=== PATIENT | male | born 1995 | race African-American/Black ===

== ENCOUNTER 2021-10-14 11:01 | Emergency (ER) | payer BC ==
[~2021-10-14] VITALS: Ht 167.6 cm; Wt 63.5 kg
[2021-10-14 11:46] LABS: BASOPHILS # (AUTO) 0.1 K/uL (0.0-0.2); EOSINOPHILS % (AUTO) 4.4 % (0.0-6.0); HEMATOCRIT 42 % (39-51); LYMPHOCYTES # (AUTO) 2.2 K/uL (0.8-4.8); LYMPHOCYTES % (AUTO) 29.8 % (20.0-44.0); MEAN CORPUSCULAR HGB CONC 33 g/dl (31.0-36.0); MEAN CORPUSCULAR VOLUME 90 fL (80-96); MONOCYTES # (AUTO) 0.7 K/uL (0.1-1.30); MONOCYTES % (AUTO) 8.8 % (2.0-12.0); NEUTROPHILS # (AUTO) 4.2 K/uL (1.8-8.9); PLATELET COUNT (AUTO) 238 K/uL (150-450); RED BLOOD CELL COUNT(AUTO) 4.65 MIL/uL (4.5-6.0); WHITE BLOOD COUNT (AUTO) 7.5 K/uL (4.3-11.0)
[2021-10-14 11:52] LABS: CALCIUM, SERUM 9.1 mg/dL (8.5-10.1); CARBON DIOXIDE 27 mmol/L (21-32); CHLORIDE 108 mmol/L (98-107); GLUCOSE 117 mg/dL (74-106); POTASSIUM 3.6 mmol/L (3.5-5.1); SODIUM SERUM 144 mmol/L (136-145); UREA NITROGEN, BLOOD 12 mg/dL (7-18)
[2021-10-14 11:56] LABS: ALANINE AMINOTRANSFERASE 46 U/L (12-78); ALBUMIN 3.5 g/dL (3.4-5.0); ALCOHOL, BLOOD < 3 mg/dL (0-0); ALKALINE PHOSPHATASE 80 U/L (46-116); ASPARTATE AMINOTRANSFERASE 27 U/L (15-37); BILIRUBIN,DIRECT 0.1 mg/dL (0.0-0.2); BILIRUBIN,TOTAL 0.2 mg/dL (0.2-1.0); TOTAL PROTEIN, SERUM 6.4 g/dL (6.4-8.2)
[2021-10-14 11:57] LABS: ACETAMINOPHEN 0 ug/ml (10-30)
[2021-10-14 16:23] LABS: BILIRUBIN,URINE NEGATIVE (NEGATIVE); COLOR,URINE YELLOW (YELLOW); LEUKOCYTE ESTERASE ,URINE NEGATIVE (NEGATIVE); NITRITE, URINE NEGATIVE (NEGATIVE); PH,URINE 6.5 (5.0-8.0); PROTEIN,URINE NEGATIVE (NEGATIVE); UGLUCOSE NEGATIVE (NEGATIVE)
--- NOTE | 2021-10-14 16:52 | NUR ---
SS consult: SS Consult requested for pt. on a 5150 hold for running into traffic. The pt. is a 26-year-old Black male patient. Upon SS consult, the pt. is Alert & Oriented x 4 and makes good eye contact. Pt. denies SI/HI and states he is having some intermittent visual and auditory hallucinations. Per pt. he sees shadows or trees at time and hears whispers. The pt. appears disheveled, with red eyes with elevated mood & affect. Pt.'s speech is clear and pt. remains compliant throughout interview. ROXANNE explored pt.'s living situation. Patient states he is currently experiencing homelessness. However, pt. states his brother house and mother's house are both nearby and they allow him to go there at times. Pt. states he sues Meth daily and cannot go home when he uses. ROXANNE explored pt.'s mental health Hx. Patient states he has been diagnosed Schizophrenia and is on a monthly shot of Invega. SW provided resources for homelessness and pt. accepted them. ROXANNE explored pt.'s drug & ETOH use. Pt. states uses Meth daily. ROXANNE offered for pt. to be referred to drug rehab and pt. refused. ROXANNE offered pt. addiction resources and pt. accepted. Per pt. he is ambulatory and independent with all his ADL's. ROXANNE explored pt.'s support system. Pt. states his brother and mother are his support system. Pt. signed homeless waiver and it was placed in the chart. Plan: ROXANNE notified Lisa Weathers to call crisis to evaluate pt. Pt. was provided with addiction, mental health & homeless resources and pt. accepted them: Year-round shelters: [facility] [address] [place] [address] ; [facility] [address] [place] [address]; [place] [facility] Nlyhjdu[address]65 [facility]. [facility] [address] Hygiene: [facility]: [address] [address] Agu[address] ; [facility] [address] [facility] ; [facility] [address] . Food Resources: [facility]- [address]. [place]; Meet Each Need with Dignity ([facility]) [address] [place]; [facility] [address] [facility]; [facility] [address] [place] [facility] [place]. Mental Health resources provided: [facility] [address] [place], [place] [address] ; [facility] [address] [facility] [address], [place], [place] [phone] ; [facility] [address] [place] [place], [place] [id number] ; [facility] [address] [place], [place] [address] Healthcare Clinics: [facility] [address] [facility], [address] [place]. [place] ; [facility] [address] [facility] [address] [place] [address]; [facility] [place] [address] [facility]. [place] [phone] Counseling--Outpatient [facility] [address], [address] [place], [place] [address] (Specializes in in-depth psychotherapy for emotional distress: anxiety, depression, interpersonal conflicts, life transitions, childhood abuse) [facility] [address] [place], [place] [phone] (Assist with solving problem marital difficulties, separation & divorce, aging parents, & grief, chronic & terminal illness) [facility] [address] [place], [place] [phone] (Deal with loss & grief, anxiety, marital difficulties) Homebound/Mental Health Services [address] [facility], [address] [place], [place] [address] (Provide in-home mental services to people who are incapable of leaving their homes) [facility] Elder[facility] Senior Service/Resource Center [address] [place] [address] [facility] [address]. [facility] [place] [address] PSYCHIATRIC OUTPATIENT SERVICES [facility] Partial Hospitalization and Intensive Outpatient Program (Managed Care and [place] Only)[address] [facility] [phone] [facility] Partial Hospitalization and Outpatient [address] [place], [place] [phone] [facility] Mental Health [place] Ouo56951 [facility]. [address] [place], [place] [phone] [facility] Partial Hospitalization and Outpatient Ovrpncs47581 [facility] Hospital[facility]tha, [phone] Substance Abuse resources provided included: [facility] Substance Abuse Self-Helpline ([facility]) ; CRI -HELP [address] [facility] [place]. [place] [address] ; [facility] [address] [facility] [address] ; [facility] Rehabilitation Program [address] [address] [facility] [address] ; [facility] [address] [facility] [phone] ; [facility] [address] Berrypartha [facility] [phone] ; [facility] 909 [facility] [address] ; [facility] Substance Abuse Helpline([facility])-[facility] ; [facility] ; [facility] [place]; [facility] [place]; [facility] [place]; [facility] [place]; [place] [facility] [place]; [facility] [place]; [facility] [place]; [facility], [facility]. Jenelle Abdi; Alcoholics Anonymous -[facility]; [facility] ; Marijuana Anonymous [facility]; Narcotics Anonymous www.na.org;
[2021-10-14] MEDS ORDERED: OLANZAPINE 10 MG VIAL IM ONE ×2 (21:23→21:30)
--- NOTE | 2021-10-15 | NUR ---
PROVIDED URINAL AT BEDSIDE AND WARM BLANKET.
--- NOTE | 2021-10-15 03:00 | NUR ---
PROVIDED PATIENT WITH FOOD AND DRINKS.
--- NOTE | 2021-10-15 05:46 | NUR ---
PATIENT RESTING COMFORTABY NO COMPLAINTS AT THIS TIME.
--- NOTE | 2021-10-15 10:15 | NUR ---
[employer]rs[employer] member Anel is coming to evaluate pt. Per Anel, she is currently at [facility] and will come once she is done.
--- NOTE | 2021-10-15 10:40 | NUR ---
This SW provided patient with Bus TAP card as pt. stated he wanted to go visit his mother at her home and knew how to get there via bus.
--- NOTE | 2021-10-15 11:49 | NUR ---
Lunch tray provided. tolerated well.
--- NOTE | 2021-10-15 12:32 | NUR ---
Patient given written and verbal discharge instructions. Patient verbalizes understanding of instructions. Patient is ambulatory with steady gait. Refuses offer of [facility] placement. Patient given list of available shelters in surrounding area. In proper clothing upon discharge. Tap card provided. Name band removed
--- NOTE | 2021-10-15 12:32 | NUR ---
All belongings given back to patient
[2021-10-15 12:35] VITALS: BP 111/60
== END 2021-10-15 12:36 | disposition home or self-care (01) ==
LOC: ER 11:10
DX: R46.1 Bizarre personal appearance (principal); Z59.00 Homelessness unspecified
CPT/HCPCS: 36415; 80048; 80076; 80143; 80307; 80320; 81003; 85025; 99285; J3490; G0480

== ENCOUNTER 2022-02-03 10:21 | Emergency (ER) | payer BC ==
[~2022-02-03] VITALS: Ht 167.6 cm; Wt 72.6 kg
--- NOTE | 2022-02-03 10:30 | NUR ---
[address] WE[address] IN AND OUT OF TRAFFIC NAKED. PT IS TAKING TO HIMSELF, A&OX1. ATTACHED TO MONITOR, HOSPITAL GOWN AND WARM BLANKET PROVIDED FOR COMFORT.
[2022-02-03 11:09] LABS: HEMATOCRIT 42 % (39-51); MEAN CORPUSCULAR HGB CONC 33 g/dl (31.0-36.0); MEAN CORPUSCULAR VOLUME 90 fL (80-96); NEUTROPHILS % (AUTO) 63.3 % (43.0-81.0); PLATELET COUNT (AUTO) 293 K/uL (150-450); RED BLOOD CELL COUNT(AUTO) 4.69 MIL/uL (4.5-6.0); WHITE BLOOD COUNT (AUTO) 7.2 K/uL (4.3-11.0)
[2022-02-03 11:10] LABS: BASOPHILS % (AUTO) 0.4 % (0.0-2.0); EOSINOPHILS % (AUTO) 2.6 % (0.0-6.0); LYMPHOCYTES # (AUTO) 1.8 K/uL (0.8-4.8); LYMPHOCYTES % (AUTO) 25.2 % (20.0-44.0); MONOCYTES # (AUTO) 0.6 K/uL (0.1-1.30); MONOCYTES % (AUTO) 8.5 % (2.0-12.0); NEUTROPHILS # (AUTO) 4.6 K/uL (1.8-8.9)
[2022-02-03 11:41] LABS: ALANINE AMINOTRANSFERASE 47 U/L (12-78); ALBUMIN 3.4 g/dL (3.4-5.0); ALKALINE PHOSPHATASE 74 U/L (46-116); ASPARTATE AMINOTRANSFERASE 27 U/L (15-37); BILIRUBIN,DIRECT 0.1 mg/dL (0.0-0.2); BILIRUBIN,TOTAL 0.5 mg/dL (0.2-1.0); CALCIUM, SERUM 8.7 mg/dL (8.5-10.1); CARBON DIOXIDE 27 mmol/L (21-32); CHLORIDE 109 mmol/L (98-107); CREATININE 1.1 mg/dL (0.6-1.3); GLUCOSE 102 mg/dL (74-106); POTASSIUM 3.2 mmol/L (3.5-5.1); SODIUM SERUM 143 mmol/L (136-145); TOTAL PROTEIN, SERUM 6.5 g/dL (6.4-8.2); UREA NITROGEN, BLOOD 12 mg/dL (7-18)
[2022-02-03 11:54] LABS: ACETAMINOPHEN 0 ug/ml (10-30); ALCOHOL, BLOOD < 3 mg/dL (0-0)
[2022-02-03] MEDS ORDERED: OLANZAPINE 10 MG VIAL IM ONE ×2 (12:00→12:18)
--- NOTE | 2022-02-03 12:46 | NUR ---
URINE COLLECTED AND SENT
[2022-02-03 12:53] LABS: BILIRUBIN,URINE SMALL (NEGATIVE); COLOR,URINE YELLOW (YELLOW); LEUKOCYTE ESTERASE ,URINE NEGATIVE (NEGATIVE); NITRITE, URINE NEGATIVE (NEGATIVE); PROTEIN,URINE NEGATIVE (NEGATIVE); UGLUCOSE NEGATIVE (NEGATIVE)
--- NOTE | 2022-02-03 13:05 | NUR ---
SS NOTE: SW met with pt. at bedside at 11:45 am and pt. is responsing to internal stimuli, and non-compliant with interview. SW discussed with MD and pt. will be given some medication to help with psychotic symptoms. SW will follow up at a later time.
[2022-02-03 14:01] LABS: RBC,URINE 0-2 /HPF (0-2)
[2022-02-03 14:02] LABS: BACTERIA,URINE Few /HPF (None Seen); SQUAMOUS EPITHELIAL CELL,UR Rare /HPF (None Seen)
--- NOTE | 2022-02-03 19:05 | NUR ---
PT RESTING IN GURNEY. NO SIGNS OF DISTRESS NOTED. WILL CONT TO MONITOR PT. SITTER AT BEDSIDE.
--- NOTE | 2022-02-03 21:09 | NUR ---
RUSLANID SWABBED, SENT TO LAB.
--- NOTE | 2022-02-04 01:40 | NUR ---
[employer] PROFESSIONAL AT BEDSIDE FOR EVAL. UNABLE TO EVALUATE PT.
[2022-02-04 05:19] VITALS: BP 114/63
--- NOTE | 2022-02-04 05:19 | NUR ---
PT REMAINS ASLEEP. WILL CONTINUE TO MONITOR.
== END 2022-02-04 18:39 | disposition home or self-care (01) ==
LOC: ER 10:26
DX: F15.10 Other stimulant abuse, uncomplicated (principal); Z20.822 Contact with and (suspected) exposure to COVID-19; Z59.00 Homelessness unspecified
CPT/HCPCS: 99285; 96372; 85025; 80048; 80076; 81001; 36415; 87426; 80143; 80320; 80307; J3490; C9803; 87086-TC; G0480